=== PATIENT | male | born 1995 | race Caucasian/White ===

== ENCOUNTER 2017-10-11 17:24 | Emergency (ER) | payer SELFPAY ==
[2017-10-11] MEDS ORDERED: LIDOCAINE 1% INJ-PF (10 MG/ML) 30 ML SDV INJ ONE (19:19)
[2017-10-11] MEDS ORDERED: CEPHALEXIN 500 MG CAPSULE PO ONE ×2 (19:19→20:16)
[2017-10-11] MEDS ORDERED: HYDROCODONE/ACETAMINOPHEN 5-325 MG (6 TAB/ER DISP) PO PRN (19:20)
--- NOTE | 2017-10-11 19:26 | ER Document Report ---
ED Hand/Wrist Injury - General Mode of Arrival: Ambulatory Information source: Patient TRAVEL OUTSIDE OF THE [place] IN LAST 30 DAYS: No - HPI Injury to: Index finger Onset: Other - Said he noticed a black spot on Saturday started swelling on Saturday and is progressed each day Quality of pain: Sharp, Throbbing Severity: Moderate Pain Level: 3 Context: Swelling, Other - Does not know how it started - General Chief Complaint: Hand Swelling Stated Complaint: FINGER SWOLLEN Time Seen by Provider: 10/11/17 19:09 Notes: 21-year-old male presents to ED for swelling large blister to the end of the left index finger around the nail down to the DIP joint. Patient states he drinks 4 monsters a day and is going to school. (KATRIN PEOPLES) Past Medical History - General Information source: Patient - Social History Smoking Status: Current Every Day Smoker Cigarette use (# per day): Yes - Pack per day Chew tobacco use (# tins/day): No Smoking Education Provided: Yes - Less than 2 minutes Frequency of alcohol use: Heavy - Every other day Drug Abuse: Marijuana Occupation: School Lives with: Alone Family History: Arthritis, DM, Hyperlipidemia, Malignancy. denies: CAD, COPD, CVA, Hypertension, Thyroid Disfunction Patient has suicidal ideation: No Patient has homicidal ideation: No - Past Medical History Cardiac Medical History: Reports: None Pulmonary Medical History: Reports: None EENT Medical History: Reports: None Neurological Medical History: Reports: None Endocrine Medical History: Reports: None Renal/ Medical History: Reports: Other - States he needed his urethra and enlarged when he was 6 Malignancy Medical History: Reports None GI Medical History: Reports: None Musculoskeltal Medical History: Reports None Skin Medical History: Reports None Psychiatric Medical History: Reports: None Traumatic Medical History: Reports: None Infectious Medical History: Reports: None Past Surgical History: Reports: Hx Genitourinary Surgery - Urethra enlarged Review of Systems - Review of Systems Constitutional: No symptoms reported EENT: No symptoms reported Cardiovascular: No symptoms reported Respiratory: No symptoms reported Gastrointestinal: No symptoms reported Genitourinary: No symptoms reported Male Genitourinary: No symptoms reported Musculoskeletal: No symptoms reported Skin: Other - Large swollen blister from the DIP to the end of the finger including the nail Hematologic/Lymphatic: No symptoms reported Neurological/Psychological: No symptoms reported -: Yes All other systems reviewed and negative Physical Exam - Vital signs Interpretation: Normal - General General appearance: Appears well, Alert - HEENT Head: Normocephalic, Atraumatic Eyes: Normal Pupils: PERRL - Respiratory Respiratory status: No respiratory distress Chest status: Nontender Breath sounds: Normal Chest palpation: Normal - Cardiovascular Rhythm: Regular Heart sounds: Normal auscultation Murmur: No - Abdominal Inspection: Normal Distension: No distension Bowel sounds: Normal Tenderness: Nontender Organomegaly: No organomegaly - Back Back: Normal, Nontender - Extremities General upper extremity: Normal ROM, Normal temperature General lower extremity: Normal inspection, Nontender, Normal color, Normal ROM , Normal temperature, Normal weight bearing. No: Mariano's sign Hand: Tender, No evidence of human bite, No evidence of FB, Swelling, Other - Large fluid filled blister from the DIP to the end of the finger - Neurological Neuro grossly intact: Yes Cognition: Normal Orientation: AAOx4 [place] Coma Scale Eye Opening: Spontaneous Shasha Coma Scale Verbal: Oriented [place] Coma Scale Motor: Obeys Commands Shasha Coma Scale Total: 15 Speech: Normal Motor strength normal: LUE, RUE, LLE, RLE Sensory: Normal - Psychological Associated symptoms: Normal affect, Normal mood - Skin Skin Temperature: Warm Skin Moisture: Dry Skin Color: Normal - Vital signs Vitals: Temp Pulse Resp BP Pulse Ox 98.6 F 106 H 18 152/87 H 97 10/11/17 17:42 10/11/17 17:42 10/11/17 17:42 10/11/17 17:42 10/11/17 17:42 Course - Re-evaluation Re-evalutation: 10/11/17 20:[address] Ramirez for the infection to the left index finger around and under the fingernail of left index finger. removal of skin and nail suggested and completed. sterile dressing with xeroform and guaze applied the finger splint. Patient started on keflex and bactrim and given a Redmon dispense pack. Patient discharge home with prescription for keflex norco and septra. Patient to follow up with Dr Drummond or return to ed on Saturday. (KATRIN PEOPLES) 10/11/17 21:06 I did personally seen and examined this patient in conjunction with Rosalina Peoples nurse practitioner, patient complains of several days of discoloration and swelling to the left index finger, denies fevers, denies any injury he can think of. Finger is swollen and discolored dorsally with blistering, I assisted with the incision and drainage, I personally removed the nail. No evidence of felon at this time. Recommend following with Dr. Drummond as an outpatient. Take Bactrim and Keflex. (LIBBY RAMIREZ) - Vital Signs Vital signs: Temp Pulse Resp BP Pulse Ox 99.0 F 74 18 128/69 H 98 10/11/17 20:37 10/11/17 20:37 10/11/17 20:37 10/11/17 19:59 10/11/17 20:37 Procedures - Incision and Drainage Left Finger 2nd digit Time completed: 20:17 Type: Complex Anesthetic type: 1% Lidocaine mL's of anesthetic: 5 Blade size: 11 - and scissors I&D procedure: Shurclens applied Incision Method: Incision made by scalpel - and scissors Amount/type of drainage: large amount of purulent - Immobilization Left Finger 2nd digit Time completed: 20:20 Immobilizer type: Finger protection Performed by: PCT Post-Proc Neuro Vasc Exam: Normal - Nail Trephanation/Removal Left Hand 2nd digit Time completed: 20:20 Nail Trepanation/Removal Location: removal of nail Betadine prep applied: Yes Sterile Dressing Applied: Yes - xeroform Finger Splint: Yes Discharge - Discharge Clinical Impression: Abscess of left index finger, Paronychia of left index finger Condition: Stable Disposition: HOME, SELF-CARE Additional Instructions: Paronychia You have an infection between the nail and the surrounding skin, called a paronychia. The germs infect the area after a minor skin injury, such as a hangnail. This infection is treated by releasing the pus. This is usually done by the skin from the nail. If the infection has spread underneath the nail, partial removal of the nail may be necessary. Hot-soak the area three or four times daily. Antibiotics are often given, but are not always necessary. Healing takes about a week. If pain or swelling becomes severe or if you develop fever or chills, call the doctor or return for re-examination. ABSCESS: You have an abscess (boil). This a pus-forming infection, usually due to staph. Some boils may be left to drain on their own, but most require lancing. From the time the tender lump first appears, it may be three or four days before the abscess is ready to suzanna. Local heat and rest help at this stage of treatment. An antibiotic may prevent spread of the infection. Once the abscess is opened, packing may be placed into it. This is done so pus is not sealed inside by premature closure of the cavity. The packing will be removed at your follow-up visit or you may be advised to remove it yourself at home. Sometimes this packing must be replaced a few times during healing. The wound will heal with surprisingly little scar. Depending on the size and location of an abscess, healing can take one to four weeks. You may shower and wash the area around the incision site two or three times a day. Antibiotics may be prescribed, but are usually not necessary after an abscess has been drained. If you develop fever, chills, worsening pain, or increasing swelling in the area, call the doctor or return immediately. Soap Cleansing Gently wash the wound daily using a mild soap (like Ivory, Phisoderm, Neutrogena). Use warm water, rubbing gently until all debris, ooze, and crusting have been washed from the wound. Allow to dry briefly (about 10 minutes) after cleaning. Repeat this cleansing at least three times a day for the first two days and then once or twice a day. Antibiotic Ointment Protection Your wounds are such that dressing them is not practical or optional. After cleansing, you should apply a thin coating of antibiotic ointment ( Bacitracin, not Neosporin) to the wounds at least three times daily. This lessens infection risk, and may decrease the amount of scarring. Use a q-tip or dull butter knife, not your finger, to apply this ointment. Any debris or ooze which builds up in the ointment should be gently rubbed off with a sterile gauze pad. Harder crusting may need to be gently scrubbed off with a clean wash cloth with soap and warm water, perhaps applying a warm, wet wash cloth to the wound for ten minutes first. Development of redness, severe itching, or blistering may mean allergy to the ointment. See the doctor. Please reapply the splint to the finger to put checked the finger from being bumped into anything. The splint is merely for your comfort. If the splint is uncomfortable you can leave it off.. POST INCISION AND DRAINAGE: You have had an incision made to allow drainage of an abscess. The incision must remain open so that pus and debris can drain from the wound. If the abscess cavity is large, packing is placed. This keeps the tissues from collapsing and trapping pus inside, while the body shrinks the cavity. The packing may need to be replaced every day or two. The physician will instruct you on the packing. Keep a bulky dressing over the area. Replace it if it becomes saturated with blood or pus. Do not disturb the packing (if present). You may shower and cleanse the area with gentle soap and warm water two or three times a day. Local warmth may be soothing, and may promote faster healing. Return if you develop high fever or chills, or if you note spreading redness, increasing swelling, or increasing tenderness. ORAL NARCOTIC MEDICATION: You have been given a prescription and dispense pack for pain control. This medication is a narcotic. It's best taken with food, as nausea can result if taken on an empty stomach. Don't operate machinery or drive within six hours of taking this medication. Do not combine this medicine with alcohol, or with any medication which can cause sedation (such as cold tablets or sleeping pills) unless you get permission from the physician. Narcotics tend to cause constipation. If possible, drink plenty of fluids and eat a diet high in fiber and fruits. CEPHALEXIN: The antibiotic you've been prescribed is a member of the cephalosporin class. This type of antibiotic covers a wide variety of infections, including those of the skin, lungs, and urinary tract. It's useful for staph infections. This antibiotic is slightly similar to the penicillin family. In rare cases , a person who is allergic to penicillin will also be allergic to this medication. If you have had a severe allergic reaction to penicillin, and have not taken this antibiotic since that time, notify your doctor. Antibiotics which cover many germs ("broad spectrum" antibiotics) are more likely to cause diarrhea or "yeast" infections. Women prone to vaginal yeast problems may suffer an attack after taking this antibiotic. In infants, oral thrush (white spots "stuck" on the cheek) or yeast diaper rash may result. See your doctor if these problems occur. Call at once if you develop itching, hives , shortness of breath, or lightheadedness. TRIMETHOPRIM-SULFA: You have been given a prescription for trimethoprim-sulfa (TMS, Septra, Bactrim). This is a combination antibiotic of the sulfa class, often used for urinary tract infections, middle ear infections, bronchitis, shigella intestinal infection, and Pneumocystis pneumonia. TMS is usually well-tolerated. Occasional side effects include nausea and decreased appetite. Septra is not recommended for infants less than two months of age. Do not take this medication if you have experienced severe side effects or allergy to sulfa medicine. You should stop this medicine at once and contact your physician if you develop any rash, joint pain, shortness of breath, bruising, or jaundice ( yellow color in the skin), or if you develop any other new or unusual symptoms. Elevate the Injury Because of the nature of your injury, elevation will be helpful to reduce swelling. This also reduces infection risk in wounds. Keep the injury up above the level of your heart for at least the next 48 hours (or longer if the physician recommends it). Epsom Salt Soaks Soak the wound area in a container of warm epsom salt water. If you can't get the wound area into a bucket or jordan, use a folded towel soaked in the epsom salt solution and apply to the area. Use clean hot tap water (about the temperature of a very warm bath), mixing in about one (1) teaspoon for every pint of water. Two gallon --> 16 teaspoons Epsom Salts One gallon --> 8 teaspoons Epsom Salts Two quarts --> 4 teaspoons Epsom Salts One quart --> 2 teaspoons Epsom Salts Soak the wound for about 20 minutes while gently moving it around in the water. Repeat this four (4) times a day. FOLLOW-UP CARE: Most simple abscesses will not require a follow up visit. If you had packing placed in the abscess, remove it as instructed by the physician. If you have been referred to a physician for follow-up care, call the physicians office for an appointment as you were instructed or within the next two days. If you experience worsening or a significant change in your symptoms, return to the Emergency Department at any time for re-evaluation. Please call Dr. Drummond first thing Saturday morning to schedule a follow-up visit. If you cannot afford to follow-up with him return to the ED but it is best to follow-up with the hand surgeon. Prescriptions: Hydrocodone/Acetaminophen [Redmon 5-325 mg Tablet] 1 tab PO Q6HP PRN #10 tablet PRN Reason: Cephalexin Monohydrate [Keflex 500 mg Capsule] 500 mg PO Q6H 5 Days capsule Sulfamethoxazole/Trimethoprim [Septra-Ds 800-160 mg Tablet] 1 tab PO BID #20 tablet Forms: Smoking Cessation Education Referrals: DASHA DRUMMOND, [ACTIVE STAFF] - Follow up as needed
[2017-10-11 20:00] VITALS: BP 128/69
[2017-10-11] MEDS ORDERED: SULFAMETHOXAZOLE/TRIMETHOPRIM 800-160 MG TABLET PO ONE (20:16)
== END 2017-10-11 20:44 | disposition home or self-care (01) ==
LOC: ER 17:24
PROC: 0H9GXZZ Drainage of Left Hand Skin, External Approach (ICD-10-PCS; principal; 2017-10-11)
DX: L02.512 Cutaneous abscess of left hand (principal); L03.012 Cellulitis of left finger; M79.89 Other specified soft tissue disorders; F17.210 Nicotine dependence, cigarettes, uncomplicated
CPT/HCPCS: 99283; 87070; 87205; 87077; 87186; 26010; J3490